=== PATIENT | female | born 1955 ===

== ENCOUNTER → 2017-10-31 | Outpatient (CLI) | payer BC ==
--- NOTE | 2017-10-31 09:43 | XR ---
EXAMINATION TYPE: XR shoulder complete RT DATE OF EXAM: 10/31/2017 COMPARISON: NONE HISTORY: Pain TECHNIQUE: Three views are submitted. FINDINGS: The osseous structures are intact. There is no acute fracture or dislocation. Arthropathy of the AC joint noted.. Any bone island within the humeral head IMPRESSION: 1. No acute process. 2. AC joint arthropathy. If symptoms persist or concern for rotator cuff injury correlate with MRI.
== END | disposition home or self-care (01) ==
LOC: RADXRMAIN 09:18
PROVIDERS: ATTEND Family Medicine
DX: M12.9 Arthropathy, unspecified (principal)

== ENCOUNTER → 2018-01-06 | Outpatient (CLI) | payer BC ==
--- NOTE | 2018-01-06 16:38 | MR ---
EXAMINATION TYPE: MR shoulder RT wo con DATE OF EXAM: 01/06/2018 COMPARISON: Right shoulder x-ray October 31, 2017 HISTORY: Right shoulder pain with Limited ROM X5 Months TECHNIQUE: Multiplanar, multisequence imaging of the right shoulder is performed without contrast. FINDINGS: Rotator Cuff: There is increased signal involving anterior fibers of the distal supraspinatus tendon. No suspicious tear is present. Infraspinatus tendon is intact. Subscapularis tendon is intact. Rotat or cuff muscle bulk is preserved. Acromioclavicular Joint: There is mild to moderate joint space loss with subchondral cystic change at acromioclavicular joint. Anterior inferior sloping is felt present on the sagittal images. There is suggestion of underlying impingement with loss inferior fat plane seen best paracoronal image 10. Glenohumeral Joint: Moderate narrowing glenohumeral joint is seen. No significant spurring is noted. Small glenohumeral joint effusion is present. Labrum: The labrum appears grossly intact given limitation of non-arthrogram study. Biceps Tendon: The long head of biceps is in normal location within bicipital groove. Some surroundin g fluid signal is noted. Bone marrow signal: No focal abnormal marrow signal is appreciated. Other: There is moderate to severe subdeltoid/subacromial fluid. IMPRESSION: 1. Tendinosis of distal supraspinatus tendon. No full-thickness rotator cuff or labral tear identifie d. 2. Moderate to severe subdeltoid/subacromial bursitis. 3. Mild to moderate degenerative changes glenohumeral and acromioclavicular joint, possible underlyin g impingement. Correlate clinically.
== END | disposition home or self-care (01) ==
LOC: RADMRIMAIN 15:41
PROVIDERS: ATTEND Physician Assistant
DX: M75.81 Other shoulder lesions, right shoulder (principal); M75.51 Bursitis of right shoulder

== ENCOUNTER → 2020-12-23 | Outpatient (CLI) | payer BC ==
--- NOTE | 2020-12-23 16:03 | XR ---
Left shoulder HISTORY: Pain 3 views left shoulder Bone mineralization mildly reduced, joint spaces and alignment are maintained. There is overlying art ifact. No fracture or dislocation. Left lung apex as visualized is normal. Technique is somewhat limi richard. IMPRESSION: There is low bone mineralization. No acute abnormalities evident.
== END | disposition home or self-care (01) ==
LOC: RADXRMAIN 15:39
PROVIDERS: ATTEND Family Medicine
DX: M25.512 Pain in left shoulder (principal)